=== PATIENT | male | born 1980 | race African-American/Black ===

== ENCOUNTER 2021-03-03 14:04 | Emergency (ER) | payer SELFPAY ==
[~2021-03-03] VITALS: Ht 167.6 cm; Wt 73.0 kg
[2021-03-03] MEDS: KETOROLAC 60MG/2ML VIAL IM ONE ×2 (18:10→18:18)
[2021-03-03 18:18] LABS: BASOPHILS % 1.2 % (0.0-2.0); EOSINOPHILS % 1.8 % (0.0-5.0); HEMATOCRIT. 27.9 % (42.0-52.0); HEMOGLOBIN. 9.5 g/dL (14.0-18.0); LYMPHOCYTES % 21.3 % (20.0-50.0); MEAN CORPUSCULAR HEMOGLOBIN 26.8 pg (28.0-32.0); MEAN CORPUSCULAR VOLUME 78.7 fL (80.0-94.0); MEAN PLATELET VOLUME 7.3 fl (7.4-10.4); NEUTROPHILS % 68.7 % (40.0-76.0); PLATELET 267 x1000/uL (130-400); RED BLOOD CELL COUNT 3.55 mill/uL (4.7-6.1); RED CELL DISTRIBUTION WIDTH 14.7 % (11.6-14.6)
[2021-03-03 18:25] LABS: CHLORIDE 111 mEq/L (98-107)
[2021-03-03] MEDS ORDERED: KETOROLAC 30MG/ML VIAL IV ONE (18:30)
[2021-03-03] MEDS ORDERED: HYDROMORPHONE HCL/PF 2MG/ML CPJ IV ONE ×2 (18:30→21:00)
[2021-03-03 22:00] VITALS: BP 138/82
[2021-03-03] MEDS ORDERED: OXYC1TAB5 MT (22:26)
== END 2021-03-03 22:30 | disposition home or self-care (01) ==
LOC: ER 14:04
DX: M54.50 Low back pain, unspecified (principal); G89.29 Other chronic pain; Z98.1 Arthrodesis status; Z88.5 Allergy status to narcotic agent; W11.XXXA Fall on and from ladder, initial encounter; Y93.89 Activity, other specified; Y92.018 Other place in single-family (private) house as the place of occurrence of the external cause
CPT/HCPCS: 36415; 72131; 72148; 80053; 85025; 96374; 96375; 99284; J1170; J1885